=== PATIENT | male | born 1950 | race Caucasian/White ===

== ENCOUNTER 2020-04-19 13:24 | Outpatient (CLI) | payer OTHER, MEDICARE ==
[~2020-04-19 13:24] MED LIST: AMLO1TAB80 PO; IRBE150T49 PO; MULT-658 PO; OXYC-302 PO; SULF1TAB23 PO
[2020-04-19] MEDS ORDERED: VISIPAQUE 270 MG/ML, 50ML BOTTLE ONE (14:21)
== END 2020-04-19 23:59 | disposition home or self-care (01) ==
LOC: RAD 13:24
PROVIDERS: ATTEND Internal Medicine Hematology & Oncology
DX: T82.868A Thrombosis due to vascular prosthetic devices, implants and grafts, initial encounter (principal); C22.8 Malignant neoplasm of liver, primary, unspecified as to type; Y83.8 Other surgical procedures as the cause of abnormal reaction of the patient, or of later complication, without mention of misadventure at the time of the procedure
CPT/HCPCS: 36598; J1642; Q9966; 76000

== ENCOUNTER → 2020-04-20 | Day surgery (SDC) | payer OTHER, MEDICARE | END | disposition home or self-care (01) | LOC: RAD 15:18 | PROVIDERS: ATTEND Internal Medicine Hematology & Oncology | DX: M79.89 Other specified soft tissue disorders (principal); I82.621 Acute embolism and thrombosis of deep veins of right upper extremity; I82.C11 Acute embolism and thrombosis of right internal jugular vein; C18.7 Malignant neoplasm of sigmoid colon; Z79.899 Other long term (current) drug therapy; Z72.89 Other problems related to lifestyle ==

== ENCOUNTER 2020-04-22 07:30 | Day surgery (SDC) | payer OTHER, MEDICARE ==
[~2020-04-22] VITALS: Ht 172.7 cm; Wt 96.6 kg
[2020-04-22 08:19] VITALS: BP 126/81
[2020-04-22] MEDS ORDERED: SODIUM CHLORIDE 0.9% 1,000 ML IV SCH (08:21)
[2020-04-22] MEDS ORDERED: CEFAZOLIN PMX 1GM/50ML 50 ML ONE (08:29)
[2020-04-22] MEDS ORDERED: CEFAZOLIN PMX 1GM/50ML 50 ML IV ONE (08:30)
[2020-04-22] MEDS ORDERED: LIDOCAINE 1%, 20ML ONE (08:59)
[2020-04-22] MEDS ORDERED: MIDAZOLAM 1 MG/ML, 5ML ONE (09:07)
[2020-04-22] MEDS ORDERED: FLUMAZENIL 0.1 MG/1 ML, 5ML ONE (09:07)
[2020-04-22] MEDS ORDERED: NALOXONE 1 MG/ML, 2ML ONE (09:07)
[2020-04-22] MEDS ORDERED: FENTANYL PF 100 MCG/2ML ONE (09:07)
[2020-04-22] MEDS ORDERED: LIDOCAINE 1%, 10ML ONE (09:18)
== END 2020-04-22 11:45 | disposition home or self-care (01) ==
LOC: OUT 07:30
PROVIDERS: ATTEND Internal Medicine Hematology & Oncology
DX: T82.594A Other mechanical complication of infusion catheter, initial encounter (principal); C18.7 Malignant neoplasm of sigmoid colon; C78.7 Secondary malignant neoplasm of liver and intrahepatic bile duct; I10 Essential (primary) hypertension; Z85.46 Personal history of malignant neoplasm of prostate; Z90.49 Acquired absence of other specified parts of digestive tract; Z92.3 Personal history of irradiation; Y83.8 Other surgical procedures as the cause of abnormal reaction of the patient, or of later complication, without mention of misadventure at the time of the procedure
CPT/HCPCS: 36561; 36590; 76937; 77001; 99156; 99157; C1788; J0690; J1642; J2250; J3010; J7030; J2310

== ENCOUNTER → 2020-06-07 | Outpatient (CLI) | payer OTHER, MEDICARE | END | disposition home or self-care (01) | LOC: CFH 15:32 | PROVIDERS: ATTEND Internal Medicine Hematology & Oncology | DX: C18.7 Malignant neoplasm of sigmoid colon (principal); E80.7 Disorder of bilirubin metabolism, unspecified; R94.4 Abnormal results of kidney function studies | CPT/HCPCS: 76770 ==

== ENCOUNTER 2021-01-25 16:29 | Emergency (ER) | payer OTHER, MEDICARE ==
[~2021-01-25] VITALS: Ht 172.7 cm; Wt 90.4 kg
[~2021-01-25 16:29] MED LIST changes: -OXYC-302 PO; +OXYC1TAB14 PO
--- NOTE | 2021-01-25 16:51 | NUR ---
ASSUMED CARE OF PATIENT. PATIENT REPORTS HE IS BEING TREATED FOR CANCER ON HIS LIVER AND THE LAST COUPLE OF DAYS HE HAS NOTICED BRIGHT RED BLOOD IN THE TOILET AFTER USING THE BATHROOM. PT DENIES PAIN. VS STABLE. NO ACUTE DISTRESS NOTED. FAMILY AT BEDSIDE. CALL LIGHT IN PLACE. WILL CONTINUE TO MONITOR.
[2021-01-25 17:43] LABS: BASOPHILS % (AUTO) 0 % (0-1); EOSINOPHILS % (AUTO) 3 % (1-7); LYMPHOCYTES % (AUTO) 21 % (22-44); MEAN CORPUSCULAR HEMOGLOBIN 25.7 pg (27.5-34.5); MEAN CORPUSCULAR HGB CONC 32.1 g/dL (33.2-36.2); MEAN PLATELET VOLUME 7.9 fL (7.4-10.4); MONOCYTES % (AUTO) 12 % (2-9); NEUTROPHILS % (AUTO) 63 % (42-75); PLATELET COUNT 234 x10^3/uL (130-400); RED BLOOD COUNT 4.45 x10^6/uL (4.38-5.82); RED CELL DISTRIBUTION WIDTH 19.2 % (9.4-14.8)
[2021-01-25 17:46] LABS: MD NO
--- NOTE | 2021-01-25 17:46 | NUR ---
PT RESTING IN ROOM. VS STABLE. NO ACUTE DISTRESS NOTED. CALL LIGHT IN PLACE. WILL CONTINUE TO MONITOR.
[2021-01-25 17:50] LABS: ALBUMIN 3.1 g/dL (3.4-5.0); ANION GAP 7 mmol/L (5-15); CALCIUM 8.9 mg/dL (8.5-10.1); CHLORIDE 106 mmol/L (98-107)
[2021-01-25 17:52] LABS: INTERNATIONAL NORMALIZED RATIO 1.2 (0.93-1.1); PROTHROMBIN TIME 12.8 Seconds (9.6-11.5)
[2021-01-25 17:54] LABS: ALANINE AMINOTRANSFERASE 36 U/L (12-78); ALKALINE PHOSPHATASE 188 U/L (45-117); BILIRUBIN,TOTAL 0.7 mg/dL (0.2-1.0); CREATININE 0.99 mg/dL (0.7-1.3); TOTAL PROTEIN 7.2 g/dL (6.4-8.2)
[2021-01-25 18:12] VITALS: BP 111/82
--- NOTE | 2021-01-25 18:12 | NUR ---
DR GUY US UPDATED PATIENT
== END 2021-01-25 18:47 | disposition home or self-care (01) ==
LOC: ED 16:59
DX: K62.5 Hemorrhage of anus and rectum (principal); I10 Essential (primary) hypertension; Z85.46 Personal history of malignant neoplasm of prostate; Z79.899 Other long term (current) drug therapy
CPT/HCPCS: 36415; 80053; 85025; 85610; 85730; 99283